=== PATIENT | male | born 1995 | race Caucasian/White ===

== ENCOUNTER 2017-06-06 16:43 | Emergency (ER) | payer BC ==
[2017-06-06 16:58] VITALS: BP 136/72
--- NOTE | 2017-06-06 17:38 | ERNOTE ---
Upper Extremity HPI - Narrative Date of Service: 06/06/17 - General Extremities Pain Location: elbow: left - States he fell directly on. Time Seen by Provider: 06/06/17 17:30 Source: patient Exam Limitations: no limitations - Immun/Allergies/Home Medications Immunizations: IMMUNIZATION HX Immunizations Up to Date Yes Allergies/Adverse Reactions: Allergies Allergy/AdvReac Type Severity Reaction Status Date / Time No Known Allergies Allergy Verified 06/06/17 16:58 Home Medications: HOME MEDICATIONS NK [No Home Medication] 06/06/17 [Last Taken Unknown] - History of Present Illness Narrative: Apparently running and fell on the elbow approx 90 minutes ago. Very difficult with flexion and rotation. Has good extension. Occurred: just prior to arrival Location of Incident: home Severity: moderate Method of Injury: Reports: fell Reason for Fall: Reports: tripped Modifying Factors - (Worsens): Reports: movement Associated Symptoms: Reports: loss of power (lt arm) Other Injuries: Reports: none Review of Systems - Narrative Narrative: Denies any N/T distally. Denies any loss of sensation. No other injuries. - Review of Systems Constitutional: Present: no symptoms reported Musculoskeletal: Present: other - Complains of left anterior elbow pain down in the joint. States worse with flexion or rotation. Denies any shoulder or wrist pain. Denies any other symptoms. Skin: Present: no symptoms reported Neurological: Present: no symptoms reported - Patient's Past Medical History Patient History - Medical: Depression Patient History - Cardiac/Respiratory: No pertinent hx Patient History - Cancer: No Hx of Cancer Patient History - Surgical Procedures: No surgical history Patient History - Other: None - Social History Living Situations: home Psych History: No pertinent hx Alcohol Use: none Drug Use: none - Immunizations Immunizations Up to Date: Yes Physical Exam - Physical Exam General Appearance: Present: wd/wn, moderate distress Peripheral Pulses: N=norm/S=strong/W=weak/B=bound/A=absent: Radial (L): Normal Extremity Exam: Present: decreased range of motion - Very limited flexion and rotation of left elbow. However extension is acceptable. Left pin chaser weakened but present. Distal sensation intact. No obvious epicondyle deformity. Neurological Exam: Present: alert, oriented, no motor/sensory deficits Skin Exam: Present: normal color, warm/dry ED Progress - Vital Signs Patient's Vital Signs:: I have reviewed the patient's vital signs. Vital Signs: Vital Signs 06/06/17 16:53 Temperature 36.9 C Pulse Rate 91 Respiratory 12 Rate Blood Pressure 136/72 O2 Sat by Pulse 97 Oximetry - X-Ray X-Ray #1 X-Ray: elbow Interpretation: Interp. by me X-ray Comments: Appears to be a small radial head fracture minimal displaced. - Progress/Reassessment Chief Complaint: Upper Extremity Injury/Problem Progress:: Improved Procedures Location: left elbow. Nursing applied. Departure Clinical Impression: Radial head fracture, closed Qualifiers: Encounter type: initial encounter Fracture alignment: nondisplaced Laterality: left Qualified Code(s): S52.125A - Nondisplaced fracture of head of left radius , initial encounter for closed fracture - Departure Disposition: Home Follow Up Needed Condition: Good Additional Instructions: Do not use the arm until evaluated by ortho. Notify provider of any loss of sensation of the left fingers. Tylenol/motrin for pain. Referrals: Cem Thakkar MD [Primary Care Provider] -
[2017-06-06] MEDS ORDERED: KETOROLAC TROMETHAMINE 60 MG/2 ML VIAL IM ONE ×2 (17:47→17:54)
== END 2017-06-06 18:05 | disposition home or self-care (01) ==
LOC: ER 16:43
PROC: 2W39X1Z Immobilization of Left Upper Extremity using Splint (ICD-10-PCS; principal; 2017-06-06)
DX: S52.125A Nondisplaced fracture of head of left radius, initial encounter for closed fracture (principal); W19.XXXA Unspecified fall, initial encounter; Y93.02 Activity, running